=== PATIENT | female | born 2000 | race African-American/Black ===

== ENCOUNTER 2018-06-07 22:02 | Emergency (ER) | payer MEDICAID, OTHER ==
[2018-06-08 00:36] LABS: URINE BLOOD (Dip) POC Negative (NEGATIVE); URINE GLUCOSE (Dip) POC Negative (NEGATIVE); URINE KETONES (Dip) POC Negative (NEGATIVE); URINE LEUKOCYTE EST (Dip) POC Negative (NEGATIVE); URINE NITRITE (Dip) POC Negative (NEGATIVE); URINE TOTAL PROTEIN POC Negative (NEGATIVE)
[2018-06-08] MEDS: DIPHENHYDRAMINE 50 MG INJ IV (00:54)
[2018-06-08] MEDS: METOCLOPRAMIDE 10 MG INJ IV (00:54)
[2018-06-08 01:11] LABS: ADD MAN DIFF? NO
[2018-06-08 01:13] LABS: BASOPHIL # 0.1 10^3/ul (0.0-0.1); BASOPHILS % 0.6 % (0.0-2.0); EOSINOPHILS # 0.2 10^3/ul (0.0-0.5); EOSINOPHILS % 1.9 % (0.0-7.0); HEMATOCRIT 38.3 % (37.0-47.0); HEMOGLOBIN 12.7 g/dl (12.0-16.0); LYMPHOCYTES # 3.7 10^3/ul (0.8-2.9); LYMPHOCYTES % 45.3 % (18.0-55.0); MEAN CORPUSCULAR HEMOGLOBIN 31.3 pg (29.0-33.0); MEAN CORPUSCULAR HGB CONC 33.2 g/dl (32.0-37.0); MEAN CORPUSCULAR VOLUME 94.3 fl (72.0-104.0); MEAN PLATELET VOLUME 10.3 fl (7.4-10.4); MONOCYTE # 0.6 10^3/ul (0.3-0.9); MONOCYTES % 7.3 % (0.0-13.0); NEUTROPHIL # 3.7 10^3/ul (1.6-7.5); NEUTROPHILS % 44.5 % (30.0-74.0); PLATELET COUNT 318 10^3/UL (140-415); RED BLOOD COUNT 4.06 10^6/ul (4.20-5.40); RED CELL DISTRIBUTION WIDTH 13.1 % (11.5-14.5)
[2018-06-08 01:13] LABS: WHITE BLOOD COUNT 8.2 10^3/ul (4.8-10.8)
[2018-06-08 01:53] LABS: ALANINE AMINOTRANSFERASE 31 IU/L (13-69); ALBUMIN 4.5 g/dl (3.3-4.9); ALBUMIN/GLOBULIN RATIO 1.45; ALKALINE PHOSPHATASE 84 IU/L (42-121); ANION GAP 13 (8-16); ASPARTATE AMINO TRANSFERASE 43 IU/L (15-46); BILIRUBIN,INDIRECT 0.2 mg/dl (0-1.1); BILIRUBIN,TOTAL 0.2 mg/dl (0.2-1.3); BLOOD UREA NITROGEN 14 mg/dl (7-20); CALCIUM 8.7 mg/dl (8.4-10.2); CARBON DIOXIDE 22 mmol/L (21-31); CHLORIDE 109 mmol/L (97-110); CREATININE 0.49 mg/dl (0.44-1.00); GLUCOSE 80 mg/dl (70-220); SODIUM 139 mmol/L (135-144); TOTAL PROTEIN 7.6 g/dl (6.1-8.1)
== END 2018-06-08 02:32 | disposition home or self-care (01) ==
LOC: FTE 22:02
DX: R51 Headache (principal); R21 Rash and other nonspecific skin eruption
CPT/HCPCS: 36415; 80053; 81003; 81025; 85025; 96374; 96375; 99284-25